=== PATIENT | male | born 1950 | race Caucasian/White ===

== ENCOUNTER 2016-09-04 16:51 | Emergency (ER) | payer MEDICARE, MEDICAID ==
[~2016-09-04] VITALS: Ht 185.4 cm; Wt 100.0 kg
[~2016-09-04 16:51] MED LIST: AMLO-511 PO; APIX5TAB PO; ATOR40TA28 PO; BACL10TA PO; CLON.1 PO; CLOP75 PO; FOLI1 PO; GABA-529 PO; ISOS30TA6 PO; LISI-661 PO; LORA1TAB3 PO; METO50 PO; NEOM15OI26 TP; OINTMENT OU; PROM25 PO; ZOLP10 PO
[2016-09-04] MEDS ORDERED: ONDANSETRON HCL 4 MG/2 ML VIAL IVP ONE (19:15)
[2016-09-04] MEDS ORDERED: MORPHINE SULFATE 2 MG/ML SYRINGE IVP ONE (19:15)
[2016-09-04 19:31] LABS: BASOPHILS % (AUTO) 0.5 % (0.0-2.0); EOSINOPHILS % (AUTO) 0.9 % (1.0-6.0); HEMATOCRIT 46.6 % (41-53); HEMOGLOBIN 14.9 g/dL (13.5-17.5); LYMPHOCYTES # (AUTO) 1.6 K/uL (1.0-4.8); LYMPHOCYTES % (AUTO) 18.7 % (22.0-44.0); MEAN CORPUSCULAR HEMOGLOBIN 28.1 pg (26.0-34.0); MEAN CORPUSCULAR VOLUME 88 fL (80-100); MONOCYTES # (AUTO) 0.7 K/uL (0.1-1.0); MONOCYTES % (AUTO) 8.3 % (2.0-9.0); NEUTROPHILS # (AUTO) 6.1 K/uL (1.8-7.7); NEUTROPHILS % (AUTO) 71.6 % (40.0-70.0); PLATELET COUNT (AUTO) 221 K/uL (150-450); RED CELL DISTRIBUTION WIDTH 16.3 % (11.5-14.5); WHITE BLOOD COUNT (AUTO) 8.5 K/uL (4.5-11.0)
[2016-09-04 19:39] LABS: ANION GAP 9 mmol/L (8-16); CALCIUM, TOTAL 8.9 mg/dL (8.8-10.5); CARBON DIOXIDE 30 mmol/L (22-29); CHLORIDE 105 mmol/L (98-107); CREATININE 1.19 mg/dL (0.60-1.30); GLOMERULAR FILTR. RATE CALC > 60 mL/min (>60); POTASSIUM 3.4 mmol/L (3.5-5.1); SODIUM SERUM 144 mmol/L (136-145); UREA NITROGEN, BLOOD 17 mg/dL (7-18)
[2016-09-04 20:03] LABS: ALANINE AMINOTRANSFERASE 12 U/L (12-78); ALBUMIN 3.7 g/dL (3.4-5.0); ASPARTATE AMINOTRANSFERASE 22 U/L (15-37); BILIRUBIN,TOTAL 0.6 mg/dL (0.1-1.0); CREATINE KINASE MB 1.1 ng/mL (0-5); CREATINE KINASE, TOTAL 97 U/L (39-308); TOTAL PROTEIN, SERUM 7.7 g/dL (6.4-8.2)
[2016-09-04 22:38] LABS: CREATINE KINASE, TOTAL 86 U/L (39-308)
[2016-09-04 22:56] VITALS: BP 125/91
== END 2016-09-04 22:58 | disposition home or self-care (01) ==
LOC: EMS 16:53
DX: I48.91 Unspecified atrial fibrillation (principal); I25.2 Old myocardial infarction; Z88.8 Allergy status to other drugs, medicaments and biological substances; Z88.1 Allergy status to other antibiotic agents
CPT/HCPCS: 36415; 71020; 80053; 82550; 82553; 84484; 85025; 93005; 93041; 96374; 96375; 99285; J2270; J2405

== ENCOUNTER → 2017-08-30 | Outpatient (CLI) | payer MEDICARE, MEDICAID ==
[~2017-08-30] VITALS: Ht 185.4 cm; Wt 87.0 kg
[~2017-08-30] MED LIST changes: -AMLO-511 PO; -BACL10TA PO; +CLON-570 PO; -CLON.1 PO; -CLOP75 PO; -GABA-529 PO; -ISOS30TA6 PO; -NEOM15OI26 TP; -OINTMENT OU; +OXYC10 PO; +OXYC10TA93 PO; +TEMA15CA PO; +TEMA22.52 PO; -ZOLP10 PO
[2017-08-30 12:19] VITALS: BP 124/86
== END | disposition home or self-care (01) ==
LOC: SRCNTR 11:46
PROVIDERS: ATTEND Hospitalist
DX: I48.91 Unspecified atrial fibrillation (principal); E78.5 Hyperlipidemia, unspecified; I10 Essential (primary) hypertension; M16.11 Unilateral primary osteoarthritis, right hip; L40.9 Psoriasis, unspecified; G47.00 Insomnia, unspecified
CPT/HCPCS: G0463

== ENCOUNTER → 2017-10-04 | Outpatient (CLI) | payer MEDICARE, MEDICAID ==
[~2017-10-04] VITALS: Ht 185.4 cm; Wt 86.0 kg
[2017-10-04 13:07] VITALS: BP 155/104
== END | disposition home or self-care (01) ==
LOC: SRCNTR 12:45
PROVIDERS: ATTEND Hospitalist
DX: I10 Essential (primary) hypertension (principal); I48.91 Unspecified atrial fibrillation; E78.5 Hyperlipidemia, unspecified; G89.29 Other chronic pain; L40.9 Psoriasis, unspecified
CPT/HCPCS: G0463

== ENCOUNTER → 2017-12-17 | Outpatient (CLI) | payer MEDICARE, MEDICAID ==
[~2017-12-17] VITALS: Ht 185.4 cm; Wt 88.0 kg
[~2017-12-17] MED LIST changes: +CLON.3 PO; -FOLI1 PO; +MIRT15 PO; -OXYC10 PO; +RAME8TAB8 PO; -TEMA22.52 PO
[2017-12-17 10:16] VITALS: BP 136/83
== END | disposition home or self-care (01) ==
LOC: SRCNTR 10:11
PROVIDERS: ATTEND Internal Medicine Cardiovascular Disease
DX: I11.0 Hypertensive heart disease with heart failure (principal); I50.1 Left ventricular failure, unspecified; E78.5 Hyperlipidemia, unspecified; I10 Essential (primary) hypertension; I25.10 Atherosclerotic heart disease of native coronary artery without angina pectoris; I48.2 Chronic atrial fibrillation; L40.50 Arthropathic psoriasis, unspecified; Z79.01 Long term (current) use of anticoagulants; Z85.828 Personal history of other malignant neoplasm of skin; Z88.8 Allergy status to other drugs, medicaments and biological substances
CPT/HCPCS: 93005; G0463

== ENCOUNTER → 2018-03-24 | Outpatient (CLI) | payer MEDICARE, MEDICAID ==
[~2018-03-24] VITALS: Ht 185.4 cm; Wt 93.0 kg
[~2018-03-24] MED LIST changes: -CLON-570 PO
[2018-03-24 10:14] VITALS: BP 156/93
== END | disposition home or self-care (01) ==
LOC: SRCNTR 10:08
PROVIDERS: ATTEND Hospitalist
DX: I48.91 Unspecified atrial fibrillation (principal); I10 Essential (primary) hypertension; G89.4 Chronic pain syndrome; E78.5 Hyperlipidemia, unspecified; L40.9 Psoriasis, unspecified
CPT/HCPCS: G0463